=== PATIENT | male | born 1960 | race Caucasian/White ===

== ENCOUNTER 2017-03-29 05:31 | Day surgery (SDC) | payer BC, OTHER ==
[~2017-03-29] VITALS: Ht 172.7 cm; Wt 75.7 kg
--- NOTE | ~2017-03-29 | S ---
[facility] [place] [address] SURGICAL PATH RPT PROCEDURE Name: SOPHIA DON Room #: DEP [facility] M.R.#: [id number] Admission: 03/29/17 Date of : 64 Discharge: 03/29/17 Report #: [id number] Path Case #: [id number] PATHOLOGY REPORT COLLECTION DATE: 03/29/2017 RECEIVED DATE: 03/29/2017 SUBMITTING PHYS: Dr. Ezequiel Burns OTHER PHYS: Dr. Juancarlos Maddox SPECIMEN(S) RECEIVED: A.Sinus contents * * * * * * * * * * * * FINAL DIAGNOSIS: Bilateral sinus contents: - Scant fragment of detached sinonasal mucosa with mild chronic inflammation. - Specimen predominantly comprised of blood as well as mucus. - Fragments of cartilage as well as reactive bone. - No increase in eosinophils within the infiltrate. (IUV:mml; 04/02/2017) PATHOLOGIST: Stephanie Tam M.D. REPORT ELECTRONICALLY SIGNED BY: Stephanie Tam M.D. DATE/TIME: 04/02/2017 16:37 * * * * * * * * * * * * GROSS PATHOLOGY: The specimen is received fresh and subsequently placed into formalin, labeled "Katie Don, bilateral sinus contents". Received is a moderate amount of blood coagulum admixed with a minute amount of pale rodriguez membranous tissue and possible bone measuring 4.2 x 3.8 x 0.5 cm in aggregate dimensions.. Bottle Gauger tissue is submitted in cassette A1, following decalcification. (CAA; 03/30/2017) CLINICAL HISTORY: Pre-op diagnosis: Chronic sinusitis, deviated septum Post-op diagnosis: Chronic sinusitis, hypertrophy of nasal turbinates, deviated nasal septum, chronic rhinitis INITIAL CPT CODE(S): A; 02872, 08381 Professional services performed by [facility] at [facility] [address] [place] [address] SURGICAL PATH RPT PROCEDURE Name: SOPHIA DON Room #: DEP [facility] Sonido#: [id number] Admission: 03/29/17 Date of : 64 Discharge: 03/29/17 Report #: [id number] Path Case #: [id number] [address] [facility] , [place] [address] Technical services performed by [facility] at [address] [place] [address], [facility] [address] [address]. [place] [address] PHONE: [phone] DIRECTOR: Marino Cancino M.D. * * * END OF REPORT * * *
--- NOTE | ~2017-03-29 | O ---
[facility]o [place] [facility] [place] [address] OPERATIVE REPORT Name: SOPHIA DON Room #: DEP [facility]..#: [id number] Admission: 03/29/17 Attend Phys: Ezequiel Burns MD Discharge: 03/29/17 Date of : 64 Report #: [id number] THIS REPORT FOR: //name// CC: SUAD Burns DATE OF SERVICE: 03/29/2017 PREOPERATIVE DIAGNOSES: Nasal septal deviation, turbinate hypertrophy, sinusitis. POSTOPERATIVE DIAGNOSES: Nasal septal deviation, turbinate hypertrophy, sinusitis. PROCEDURE: 1. Nasal septal reconstruction. 2. Inferior turbinate submucous resection and outfracturing. 3. Image-guided endoscopic nasal polypectomy. 4. Image-guided left total ethmoidectomy. 5. Image-guided right total ethmoidectomy. 6. Image-guided left nasal antral window. 7. Image-guided right nasal antral window. SURGEON: Ezequiel Burns MD ANESTHESIA: General LMA. INDICATIONS: See H and P. FINDINGS: Severely deviated quadrangular cartilage was noted on initial examination, bowing superiorly to inferiorly to the left as well as anterior to posteriorly to the left. This continued back to involve the entire vomer as well. There is bony replacement of the superior portion of the quadrangular cartilage as well as thickening. Inferior turbinate hypertrophy was noted, right greater than left; polyposis was noted on examination of the middle meatus on both sides, more severe right than left, involving the entire ethmoid sinus cavities with multiple polyps removed. Thickened mucosa and polypoid mucosa noted on the lateral nasal glass into the uncinate process region as well as the nasal antral windows bilaterally. Thick secretions removed from the left maxillary sinus. TECHNIQUE: After obtaining consent, he was brought to the operating suite, appropriate time out was performed. General LMA anesthesia was obtained. Bed was turned 90 degrees, placed in appropriate head up position. The nose was prepped and draped in usual sterile fashion. The ActX navigation device was applied to the forehead, fiducial points were registered and accuracy was found [facility] [address] [place] [address] OPERATIVE REPORT Name: SOPHIA DON Room #: [facility] M.R.#: [id number] Admission: 03/29/17 Attend Phys: Ezequiel Burns MD Discharge: 03/29/17 Date of : 64 Report #: [id number] to be of 1 mm. The ActX guidance machine was used throughout the case with both the microdebrider as well as the suction apparatus for assistance in locating and avoiding important structures. First, the septoplasty was entertained by prepping the nose with Afrin-soaked cottonoids. These were removed and approximately 6 mL of 1% Xylocaine, 1:100,000 epinephrine injected on each side of the septum. Right-sided hemitransfixion incision was made, elevated by mucosal flap off the left side of the quadrangular cartilage back to the apex of the severe deviation. At that point, I made a vertical incision on the apex of the deviation and then more anteriorly I removed this large piece of deviated cartilage. I left enough anterior and superior for tip support. I disarticulated what I could of the bony replaced portion of the quadrangular cartilage superiorly and then elevated the mucosal flap on the right side through the quadrangular cartilage and into the vomer perpendicular plate. This flap was left intact. I then elevated the flap on the left side, there were a few rents that were created on the left side during elevation due to the severe deviation and there were no mucosal rents adjacent on the right side of the mucosal flap. The deviated quadrangular cartilage was removed in piecemeal fashion with either Jet-Trista scissors, Liza forceps or Clay Young forceps. Continued back over the deviation portion of the vomer until straight vomer tissue was found and its deviated portion was removed as well. I returned back to the maxillary crest, which had a mild deviation to the left side, which was turned back with the use of Jet-Weston scissors. At the end of this elevation of the mucosal flaps and removal of tissue, the septum was found to be relatively straight and set this as the superior most portion of the septum, which was has to be left behind due to tip support. Previously harvested cartilage was trimmed, morcellized and placed back between the septal folds. Hemitransfixion incision was closed with simple interrupted 4-0 chromic sutures. Each inferior turbinate was injected with the local anesthetic, small submucosal tunnels were created on the medial inferior surfaces. We used the microdebrider blade to submucosally reduce the inferior turbinates to appropriate size. They were then outfractured. Using a 0-degree scope, the right nasal cavity was intubated. The middle turbinate was identified and medialized with a [place], immediately the polypoid mucosa and the polyps were visualized in the middle meatus. The uncinate process was polypoid and was brought forward with a double ball and dissected away with the use of a side biter as well as the 12 degree curved upward microdebrider blade. Once the uncinate had been cleared off, the maxillary ostia was identified by probe, enlarged in an inferior and anterior direction with both the side biter and the microdebrider, removing a large portion of polypoid mucosa. Maxillary sinus itself was dry. I then proceeded to perform an ethmoidectomy through the ethmoid bulla, removing the polyps and in the inferior direction through the ground lamella into the posterior ethmoid air [facility] [address] [place] [address] OPERATIVE REPORT Name: SOPHIA DON Room #: DEP [facility]..#: [id number] Admission: 03/29/17 Attend Phys: Ezequiel Burns MD Discharge: 03/29/17 Date of : 64 Report #: [id number] cells until a clear air cell was identified and then proceeded up towards the fovea, until it was identified and then returned back towards the anterior ethmoid air cells along the fovea, removing devitalized mucosa, polypoid tissue and bone fragments. The frontal sinus duct was visualized was easily probed patent upon removal of the mucosal debris. After completion of the ethmoidectomy, a cottonoid was placed on this side. Attention was turned to the left side where a similar procedure was performed on the sinuses, first medializing the middle turbinate, identifying and removing the uncinate process, opening the maxillary ostia widely with a microdebrider and the side biter and performing ethmoidectomy in a similar fashion. Pertinent findings on this side was noted much more thickening of the lateral maxillary wall, thick but clear mucus removed from the maxillary sinus itself and less burden or bulk of the polypoid tissue was noted on the left side. One skin on the left side of frontal sinus was probed and found to be easily patent. I met the goals of surgery. I then elected to place a single piece of PosiSep into the middle turbinate ethmoid defect. This was inflated with saline. This also covered the incision into the inferior turbinate on that side and similar process was performed on the right side. Nasopharynx was suctioned free of secretions. He was allowed to awaken from the anesthetic, went to recovery room in stable condition. ESTIMATED BLOOD LOSS: Less than 30 mL. <ELECTRONICALLY SIGNED> By: Ezequiel Burns MD 04/02/17 1407 [id number] Ezequiel Burns MD /nt
[~2017-03-29 05:31] MED LIST: FLONASE 0.05%50 MCG NASAL; PRILOSEC OTC20 MG PO
[2017-03-29 06:58] VITALS: BP 117/84
[2017-03-29 09:51] VITALS: BP 117/84
== END 2017-03-29 10:40 | disposition home or self-care (01) ==
LOC: OR 05:31 → TBA 05:31 → OR 10:40
DX: J34.2 Deviated nasal septum (principal); J34.3 Hypertrophy of nasal turbinates; J32.8 Other chronic sinusitis; F17.210 Nicotine dependence, cigarettes, uncomplicated; K21.9 Gastro-esophageal reflux disease without esophagitis; Z98.890 Other specified postprocedural states
CPT/HCPCS: 50010; 50101; 50286; 50386; 50398; 50573; 50951; 51316; 51634; 52290; 52291; 53336; 56526; 56528; 62110; 62900; 64037; 70005